=== PATIENT | female | born 1970 | race Caucasian/White ===

== ENCOUNTER → 2019-11-07 | Outpatient (CLI) | payer OTHER ==
--- NOTE | 2019-11-07 08:51 | RAD ---
EXAM: CT Abdomen and Pelvis without IV contrast INDICATION: Right flank pain. TECHNIQUE: Multi-detector row CT images were acquired from the lung bases through the abdomen and pelvis without the use of IV contrast. Sagittal and coronal images were acquired from the transaxial data. All CT scans performed at this facility utilize dose optimization techniques as appropriate to the exam, including the following: Automated exposure control and adjustment of the mA and/or KV according to patient size (this includes techniques or standardized protocols for targeted exams where dose is indication/reason for exam). ORAL CONTRAST: None COMPARISON: None FINDINGS: The absence of IV contrast limits evaluation of soft tissue pathology. LOWER CHEST: Unremarkable LIVER: Unremarkable BILIARY SYSTEM: Gallbladder is unremarkable. Bile ducts are not dilated. PANCREAS: Unremarkable SPLEEN: Unremarkable ADRENALS: Unremarkable KIDNEYS & URETERS: Inferior pole left renal stone measuring 9 mm. No hydronephrosis or perirenal soft tissue stranding. Kidneys otherwise unremarkable. BLADDER: Unremarkable REPRODUCTIVE ORGANS: Cystic structure at the left adnexa measuring 2.9 cm abuts fluid-filled small bowel loops and could represent an additional loop of bowel versus a dominant left ovarian cyst. GASTROINTESTINAL: The stomach, small bowel, and colon are unremarkable. The appendix is normal. MESENTERY/PERITONEUM/RETROPERITONEUM: Unremarkable VASCULAR: Unremarkable LYMPH NODES: No adenopathy OSSEOUS & SOFT TISSUES: Unremarkable IMPRESSION: Left nonobstructing nephrolithiasis. Otherwise unremarkable noncontrast abdomen pelvis CT. Electronically signed by: Yuli Grider MD (11/07/2019 8:48 AM) [id number]
== END ==
LOC: CT 07:38
PROVIDERS: ATTEND Family Medicine
DX: N20.0 Calculus of kidney (principal); R31.29 Other microscopic hematuria
CPT/HCPCS: 74176

== ENCOUNTER 2021-10-16 17:59 | Emergency (ER) | payer OTHER ==
[~2021-10-16] VITALS: Ht 170.2 cm; Wt 79.5 kg
[2021-10-16] MEDS ORDERED: HYDROcodone/APAP 5/325MG 1 TAB TABLET PO ONE (18:15)
[2021-10-16 18:17] VITALS: BP 152/90
--- NOTE | 2021-10-16 18:18 | PHYS DOC ---
General Adult HPI: HPI: Patient is a 51-year-old female who presents to the emergency department for right ankle pain and swelling that she rates 4 out of 10. The pain does not radiate and is worse with movement. Patient reports that she stepped off a curb twice and was at her ankles. She denies any decreased mobility and decrease sensation in extremity. She reports that she is able to bear weight and ambulate. (RAQUEL SINGH APRN) Review of Systems: Review of Systems: Musculoskeletal: see HPI Integument: see HPI, reports abrasion noted to right of ankle Neurologic: see HPI (RAQUEL SINGH APRN) Current Medications: Current Meds: Current Medications Medications (Trade) Dose Ordered Sig/Lazaro Start Time Stop Time Status Last Admin Dose Admin Acetaminophen/ Hydrocodone Bitart (Lortab 5/325) 1 tab 1X ONCE 10/16/21 18:15 10/16/21 18:16 UNV (RAQUEL SINGH APRN) Physical Exam: PE: Constitutional: Well developed, well nourished, no acute distress, non-toxic appearance. [] HENT: Normocephalic, atraumatic, bilateral external ears normal, oropharynx madie st, no oral exudates, nose normal. [] Eyes: PERRL, EOMI, conjunctiva normal, no discharge. [] Neck: Normal range of motion, no stridor Cardiovascular: normal peripheral perfusion Lungs & Thorax: normal WOB, no tachypnea Abdomen: soft and flat Skin: Warm, dry, no erythema, no rash. [] Back: No tenderness, normal ROM Extremities: No tenderness, no cyanosis, no clubbing, ROM intact, no edema. [] Right ankle: swelling to lateral aspect of ankle, abrasion to front of ankle, ecchymosis to lateral ankle, rom intact, neuro intact. Neurologic: Alert and oriented X 3, normal motor function, normal sensory function, no focal deficits noted. [] Psychologic: Affect normal, judgement normal, mood normal. [] (RAQUEL SINGH APRN) EKG: EKG: [] (RAQUEL SINGH APRN) Radiology/Procedures: Radiology/Procedures: [] (RAQUEL SINGH APRN) Heart Score: C/O Chest Pain: N/A Risk Factors: Risk Factors: DM, Current or recent (<one month) smoker, HTN, HLP, family history of CAD, obesity. Risk Scores: Score 0 - 3: 2.5% MACE over next 6 weeks - Discharge Home Score 4 - 6: 20.3% MACE over next 6 weeks - Admit for Clinical Observation Score 7 - 10: 72.7% MACE over next 6 weeks - Early Invasive Strategies (RAQUEL SINGH APRN) Course & Med Decision Making: Course & Med Decision Making Pertinent Labs and Imaging studies reviewed. (See chart for details) [] Patient presents to the emergency department for right ankle pain and swelling after rolling it twice today when stepping off a curb. Imaging was performed in the emergency department and patient's pain was treated. Xray as interpreted by supervising physician shows possible avulsion fracture of ankle. Patient placed into a ankle stirrup splint. She is neurovascularly intact. She will be discharged home with pain medication educated on fracture. She is advised to follow-up with primary care provider and orthopedic doctor. She was given Ortho referral. I discussed with patient all findings and diagnostic testing as well as the need to follow-up with PCP for further evaluation and treatment or return to the ER if any new or worsening symptoms. Strict return precautions were also discussed at length. Patient voiced understanding and agreement with the plan. Patient is hemodynamically stable at the time of disposition. (RAQUEL SINGH APRN) Course & Med Decision Making Did not see or evaluate patient. Did not discuss patient with HEEL TURNER. Generally agree with HEEL TURNER's work-up and disposition per note. (EJ HARTLEY MD) Dragon Disclaimer: Dragon Disclaimer: This electronic medical record was generated, in whole or in part, using a voice recognition dictation system. (RAQUEL SINGH APRN) Departure Departure: Impression: Primary Impression: Right fibular fracture Qualified Codes: S82.831A - Other fracture of upper and lower end of right fibula, initial encounter for closed fracture Disposition: HOME / SELF CARE / HOMELESS Condition: GOOD Referrals: JULIANA FINK DO (PCP) ZULEMA ALMANZA Jr. DO Patient Instructions: Ankle Fracture Additional Instructions: You are seen in the emergency department today for ankle pain after injury. You were noted to have a possible ankle fracture in your ankle was placed in a splint to help with healing and support. You will need to follow-up with the orthopedic doctors in the orthopedic clinic as soon as possible. Please see attached information regarding follow-up physician. You should perform range of motion exercises to prevent stiffness of your joints. Splints help with the pain and can promote healing but immobility can cause chronic pain over time. Please refer to these attached instructions regarding range of motion exercises. You should use ice and elevation to help with the swelling and pain. For the first 24 hours apply ice 20 minutes on 20 minutes off 4 times per day. You may take NSAID medications ( ibuprofen, naproxen) to help with the pain. You are being discharged home with pain medication which is hydrocodone and Tylenol combination tablet. This medication may cause sedation so do not take when you need to be alert, driving a vehicle or with alcohol. Please return to the emergency department if you develop any of the following symptoms: Increasing pain that does not improve with treatments. New numbness or tingling Warmth, redness, skin discoloration, skin breakdown, drainage near splinted are a. Increasing inability to move your extremity or digits. Foul odor coming from splint Fevers or chills Nausea or vomiting Persistent lightheadedness We would be happy to see you for any other concerning symptoms regarding your splinted extremity. Scripts Hydrocodone Bit/Acetaminophen (HYDROCODONE-APAP 5-325 ) 1 Each Tablet 1 TAB PO PRN Q6HRS PRN for PAIN for 2 Days, #8 TAB 0 Refills Prov: RAQUEL SINGH APRN 10/16/21 RAQUEL SINGH APRN October 16, 2021 18:18 EJ HARTLEY MD October 21, 2021 19:41
[2021-10-16] MEDS ORDERED: HYDR-2155 PO (19:17)
--- NOTE | 2021-10-16 20:44 | RAD ---
Exam: Right ankle 3 views INDICATION: Rolled ankle, pain TECHNIQUE: Frontal, lateral and oblique views the right ankle Comparisons: None FINDINGS: Mild soft tissue swelling overlying the lateral malleolus. Bone mineralization is normal. No acute or healed fractures. Joint spaces are well-maintained. IMPRESSION: Soft tissue swelling overlying the lateral malleolus without underlying osseous abnormality identifie d. Electronically signed by: Kingsley Conde MD (10/16/2021 8:42 PM) FAZAL
== END 2021-10-16 19:42 | disposition home or self-care (01) ==
LOC: ER 17:59
DX: S82.831A Other fracture of upper and lower end of right fibula, initial encounter for closed fracture (principal); W22.8XXA Striking against or struck by other objects, initial encounter; Y93.89 Activity, other specified; Y92.89 Other specified places as the place of occurrence of the external cause; Y99.8 Other external cause status
CPT/HCPCS: 29515; 73610; 99283